=== PATIENT | male | born 1960 | race Caucasian/White ===

== ENCOUNTER 2021-05-19 10:18 | Inpatient (IN) | payer BC ==
[2021-05-19 12:16] LABS: BASO % 0.6 % (0-2.0); EOS % 0.1 % (0-4.5); HEMATOCRIT 42.3 % (35.4-49); HEMOGLOBIN 14.8 GM/dL (11.7-16.9); LYMPH % 24.1 % (8-40); MCHC 35.1 g/dl (32.0-35.9); MEAN CELL VOLUME 96.7 fl (80-96); MEAN PLT VOLUME 8.6 fl (7.5-11.1); MONO % 7.2 % (3.8-10.2); PLATELET COUNT 178 10^3/uL (134-434); RBC 4.37 M/mm3 (4.00-5.60); RDW 13.5 % (11.9-15.9); WHITE BLOOD COUNT 5.4 K/mm3 (4.0-10.0)
[2021-05-19 12:29] LABS: CHLORIDE 96 mmol/L (98-107); SODIUM 132 mmol/L (136-145)
[2021-05-19 12:31] LABS: ANION GAP 15 MMOL/L (8-16); CALCIUM 9.1 mg/dL (8.5-10.1); CO2 20 mmol/L (21-32); GLUCOSE,RANDOM 232 mg/dL (74-106)
[2021-05-19 12:34] LABS: CREATININE 1.8 mg/dL (0.55-1.3); SGOT/AST 67 U/L (15-37); SGPT/ALT 62 U/L (13-61)
[2021-05-19 12:36] LABS: BILIRUBIN,TOTAL 1.1 mg/dL (0.2-1); TOT PROT 7.4 g/dl (6.4-8.2)
[2021-05-19 12:37] LABS: ALK PHOS 100 U/L (45-117)
[2021-05-19] MEDS ORDERED: ASPIRIN 81 MG CHEWABLE TABLETS PO ONE (13:28)
[2021-05-19] MEDS ORDERED: ASPIRIN 81 MG CHEWABLE TABLETS ONE (14:17)
[2021-05-19] MEDS ORDERED: sitaGLIPtin PHOSPHATE 50 MG TABLET ONE (14:35)
[2021-05-19] MEDS: SODIUM CHLORIDE 0.45% 1,000 ML IV SCH (14:47)
[2021-05-19 15:23] LABS: N-TERMINAL BNP 2309.4 pg/ml (5-125)
[2021-05-19] MEDS ORDERED: ENOXAPARIN NA (PORCINE) 100 MG/1 ML DISP.SYRIN SQ SCH ×2 (22:00→22:15)
[2021-05-19] MEDS: METOPROLOL TARTRATE 25 MG TABLET (FP) PO SCH (22:30)
[2021-05-19] MEDS: ACETAMINOPHEN 325 MG TABLET (FP) PO PRN (23:03)
[2021-05-19] MEDS: ENOXAPARIN NA (PORCINE) 100 MG/1 ML DISP.SYRIN SQ SCH (23:25)
[2021-05-20] MEDS: SODIUM CHLORIDE 0.45% 1,000 ML IV SCH (05:28)
[2021-05-20] MEDS: ACETAMINOPHEN 325 MG TABLET (FP) PO PRN ×3 (06:28→23:27)
[2021-05-20 07:28] LABS: CALCIUM 8.4 mg/dL (8.5-10.1)
[2021-05-20 07:29] LABS: BLOOD UREA NITROGEN 23.3 mg/dL (7-18)
[2021-05-20 07:32] LABS: CREATININE 1.2 mg/dL (0.55-1.3)
[2021-05-20] MEDS: ASPIRIN COATED 81 MG TABLET.EC PO SCH (09:28)
[2021-05-20] MEDS: METOPROLOL TARTRATE 25 MG TABLET (FP) PO SCH ×2 (09:28→22:24)
[2021-05-20] MEDS: ENOXAPARIN NA (PORCINE) 100 MG/1 ML DISP.SYRIN SQ SCH (09:28)
[2021-05-20] MEDS: SODIUM CHLORIDE 1,000 ML IV SCH ×2 (09:29→23:25)
[2021-05-20] MEDS ORDERED: amLODIPine BESYLATE 5 MG TABLET (FP) PO SCH (10:00)
[2021-05-20] MEDS: LIDOCAINE 5% TOPICAL PATCH TP SCH (11:35)
[2021-05-20 13:20] VITALS: BMI 26.7
[2021-05-20 20:37] LABS: URINE APPEARANCE CLEAR; URINE BILIRUBIN NEGATIVE (NEGATIVE); URINE COLOR YELLOW; URINE GLUCOSE (UA) NEGATIVE (NEGATIVE); URINE KETONE NEGATIVE (NEGATIVE); URINE LEUK ESTERASE NEGATIVE (NEGATIVE); URINE NITRITE NEGATIVE (NEGATIVE); URINE PROTEIN NEGATIVE (NEGATIVE); URINE UROBILINOGEN 0.2 mg/dL (0.2-1.0)
[2021-05-20] MEDS: ATORVASTATIN CA 40 MG TABLET (FP) PO SCH (22:24)
[2021-05-20] MEDS: LIDOCAINE PATCH REMOVAL MC SCH (22:24)
[2021-05-21] MEDS: ACETAMINOPHEN 325 MG TABLET (FP) PO PRN ×2 (06:38→18:39)
[2021-05-21 07:24] LABS: CALCIUM 8.3 mg/dL (8.5-10.1)
[2021-05-21 07:25] LABS: BLOOD UREA NITROGEN 12.4 mg/dL (7-18)
[2021-05-21 07:28] LABS: CREATININE 0.7 mg/dL (0.55-1.3)
[2021-05-21 07:29] LABS: BILIRUBIN,TOTAL 0.7 mg/dL (0.2-1); TOT PROT 5.8 g/dl (6.4-8.2)
[2021-05-21 07:36] LABS: ALBUMIN 3.1 g/dl (3.4-5.0)
[2021-05-21] MEDS ORDERED: oxyCODONE HCL 5 MG TABLET PO PRN (08:30)
[2021-05-21] MEDS: LOSARTAN POTASSIUM 25 MG TABLET PO SCH (10:28)
[2021-05-21] MEDS: METOPROLOL TARTRATE 25 MG TABLET (FP) PO SCH ×2 (10:28→22:26)
[2021-05-21] MEDS: LIDOCAINE 5% TOPICAL PATCH TP SCH (10:28)
[2021-05-21] MEDS: ASPIRIN COATED 81 MG TABLET.EC PO SCH (10:28)
[2021-05-21] MEDS: ENOXAPARIN NA (PORCINE) 40 MG/0.4 ML DISP.SYRIN SQ SCH (10:29)
[2021-05-21] MEDS: amLODIPine BESYLATE 10 MG TABLET (FP) PO SCH (10:29)
[2021-05-21] MEDS ORDERED: diphenhydrAMINE HCL 25 MG CAPSULE (FP) PO PRN (14:33)
[2021-05-21] MEDS: ATORVASTATIN CA 40 MG TABLET (FP) PO SCH (22:26)
[2021-05-21] MEDS: LIDOCAINE PATCH REMOVAL MC SCH (22:26)
[2021-05-22] MEDS: ACETAMINOPHEN 325 MG TABLET (FP) PO PRN ×2 (00:04→09:50)
[2021-05-22] MEDS: ENOXAPARIN NA (PORCINE) 40 MG/0.4 ML DISP.SYRIN SQ SCH (09:49)
[2021-05-22] MEDS: ASPIRIN COATED 81 MG TABLET.EC PO SCH (09:50)
[2021-05-22] MEDS: FAMOTIDINE 20 MG TABLET PO SCH (09:50)
[2021-05-22] MEDS: METOPROLOL TARTRATE 25 MG TABLET (FP) PO SCH ×2 (09:50→21:52)
[2021-05-22] MEDS: LOSARTAN POTASSIUM 25 MG TABLET PO SCH (09:50)
[2021-05-22] MEDS: NAPROXEN 500 MG TABLET PO SCH ×2 (09:50→21:52)
[2021-05-22] MEDS: amLODIPine BESYLATE 10 MG TABLET (FP) PO SCH (09:50)
[2021-05-22] MEDS: LIDOCAINE 5% TOPICAL PATCH TP SCH (09:52)
[2021-05-22 11:19] LABS: BASO % 0.4 % (0-2.0); EOS % 0.5 % (0-4.5); HEMATOCRIT 34.1 % (35.4-49); HEMOGLOBIN 11.8 GM/dL (11.7-16.9); LYMPH % 20.5 % (8-40); MCH 33.8 pg (25.7-33.7); MCHC 34.6 g/dl (32.0-35.9); MEAN CELL VOLUME 97.5 fl (80-96); MEAN PLT VOLUME 8.5 fl (7.5-11.1); MONO % 13.2 % (3.8-10.2); NEUT % 65.4 % (42.8-82.8); PLATELET COUNT 150 10^3/uL (134-434); RBC 3.49 M/mm3 (4.00-5.60); RDW 13.6 % (11.9-15.9); WHITE BLOOD COUNT 3.3 K/mm3 (4.0-10.0)
[2021-05-22] MEDS ORDERED: LOSARTAN POTASSIUM 50 MG TABLET PO SCH (11:28)
[2021-05-22 11:41] LABS: CALCIUM 8.6 mg/dL (8.5-10.1)
[2021-05-22 11:42] LABS: ALBUMIN 3.3 g/dl (3.4-5.0); BLOOD UREA NITROGEN 11.6 mg/dL (7-18)
[2021-05-22 11:44] LABS: URIC ACID 4.8 mg/dL (2.6-7.2)
[2021-05-22 11:45] LABS: CREATININE 0.8 mg/dL (0.55-1.3)
[2021-05-22 11:47] LABS: BILIRUBIN,TOTAL 0.7 mg/dL (0.2-1); TOT PROT 6.4 g/dl (6.4-8.2)
[2021-05-22 12:09] LABS: ERYTHROCYTE SEDIMENTATION RATE 86 mm/hr (0-20)
[2021-05-22] MEDS ORDERED: LOSARTAN POTASSIUM 25 MG TABLET PO ONE (12:30)
[2021-05-22] MEDS: COLCHICINE 0.6 MG TAB PO SCH (18:00)
[2021-05-22] MEDS: LIDOCAINE PATCH REMOVAL MC SCH (21:52)
[2021-05-22] MEDS: ATORVASTATIN CA 40 MG TABLET (FP) PO SCH (21:52)
[2021-05-23] MEDS: predniSONE 20 MG TABLET (UD) PO SCH ×2 (08:00→10:25)
[2021-05-23 09:32] VITALS: BP 147/64; PULSE 85; TEMP 97.8
[2021-05-23] MEDS: METOPROLOL TARTRATE 25 MG TABLET (FP) PO SCH (10:21)
[2021-05-23] MEDS: COLCHICINE 0.6 MG TAB PO SCH (10:21)
[2021-05-23] MEDS: amLODIPine BESYLATE 10 MG TABLET (FP) PO SCH (10:21)
[2021-05-23] MEDS: NAPROXEN 500 MG TABLET PO SCH (10:21)
[2021-05-23] MEDS: ENOXAPARIN NA (PORCINE) 40 MG/0.4 ML DISP.SYRIN SQ SCH (10:22)
[2021-05-23] MEDS: FAMOTIDINE 20 MG TABLET PO SCH (10:22)
[2021-05-23] MEDS: LIDOCAINE 5% TOPICAL PATCH TP SCH (10:23)
[2021-05-23] MEDS: ASPIRIN COATED 81 MG TABLET.EC PO SCH (10:24)
== END 2021-05-23 12:09 | disposition home or self-care (01) | DRG 641 ==
LOC: JER 10:18 → JERBED 14:16 → J2W 16:48
PROVIDERS: ADMIT Internal Medicine; ATTEND Internal Medicine
DX: E87.1 Hypo-osmolality and hyponatremia (principal); I24.8 Other forms of acute ischemic heart disease; N17.9 Acute kidney failure, unspecified; E11.9 Type 2 diabetes mellitus without complications; R00.0 Tachycardia, unspecified; R77.8 Other specified abnormalities of plasma proteins; R94.31 Abnormal electrocardiogram [ECG] [EKG]; M10.9 Gout, unspecified; M25.569 Pain in unspecified knee; E78.5 Hyperlipidemia, unspecified; I71.2 Thoracic aortic aneurysm, without rupture; M25.469 Effusion, unspecified knee; R07.89 Other chest pain; I11.9 Hypertensive heart disease without heart failure; I12.9 Hypertensive chronic kidney disease with stage 1 through stage 4 chronic kidney disease, or unspecified chronic kidney disease; E11.22 Type 2 diabetes mellitus with diabetic chronic kidney disease; N18.9 Chronic kidney disease, unspecified
CPT/HCPCS: 36415; 71045-TC-FY; 71275-TC; 73562-TC-LT-FY; 80048; 80053; 81003; 82962; 83880; 84484; 84550; 85025; 85651; 86140; 87804; 93005; 93010; 93306-TC; 93971-TC; 97116-GP; 97161-GP; 99285-25; C9803; Q9967; U0003; U0005

== ENCOUNTER 2021-08-15 09:16 | Inpatient (IN) | payer BC ==
[2021-08-15 09:34] VITALS: BMI 25.0
[2021-08-15] MEDS ORDERED: ACETAMINOPHEN 1000 MG/100 ML BAG IVPB ONE (10:28)
[2021-08-15] MEDS ORDERED: SODIUM CHLORIDE 0.9% 500 ML INFUS.BAG IV ONE (10:28)
[2021-08-15] MEDS ORDERED: FAMOTIDINE 20 MG/50 ML IVPB 20 MG/50 ML MG IVPB ONE (10:29)
[2021-08-15] MEDS ORDERED: FAMOTIDINE 10 MG/ML VIAL IVPB ONE (10:37)
[2021-08-15] MEDS ORDERED: diazePAM CARPU-JECT 10 MG/2 ML DISP.SYRIN IVPUSH ONE (10:39)
[2021-08-15] MEDS ORDERED: diazePAM CARPU-JECT 10 MG/2 ML DISP.SYRIN ONE (10:43)
[2021-08-15 11:10] LABS: INR 1.21 (0.83-1.09); PROTHROMBIN TIME (PATIENT) 13.9 SEC (9.7-13.0)
[2021-08-15 11:20] LABS: ALBUMIN 3.5 g/dl (3.4-5.0); BLOOD UREA NITROGEN 20.6 mg/dL (7-18); CALCIUM 9.1 mg/dL (8.5-10.1)
[2021-08-15 11:23] LABS: CREATININE 1.2 mg/dL (0.55-1.3)
[2021-08-15 11:23] LABS: BASO % 0.3 % (0-2.0); EOS % 0.2 % (0-4.5); HEMATOCRIT 34.8 % (35.4-49); HEMOGLOBIN 12.1 GM/dL (11.7-16.9); LYMPH % 10.4 % (8-40); MCHC 34.7 g/dl (32.0-35.9); MEAN CELL VOLUME 100.8 fl (80-96); MEAN PLT VOLUME 8.4 fl (7.5-11.1); MONO % 10.1 % (3.8-10.2); PLATELET COUNT 143 10^3/uL (134-434); RBC 3.45 M/mm3 (4.00-5.60); RDW 17.2 % (11.9-15.9); WHITE BLOOD COUNT 4.1 K/mm3 (4.0-10.0)
[2021-08-15 11:25] LABS: BILIRUBIN,TOTAL 4.5 mg/dL (0.2-1); TOT PROT 6.8 g/dl (6.4-8.2)
[2021-08-15] MEDS ORDERED: PIPERACILLIN/TAZOB 3.375 GM 3.375 GM in DEXTROSE 5%-WATER - 50 ML IVPB ONE (12:01)
[2021-08-15] MEDS ORDERED: PIPERACILLIN/TAZOB 3.375 GM 3.375 GM/50 ML BAG IVPB ONE (12:12)
[2021-08-15] MEDS ORDERED: DEXTROSE 5%-LACTATED RINGERS 1,000 ML IV SCH (13:15)
[2021-08-15] MEDS: chlordiazePOXIDE HCL 25 MG CAPSULE PO SCH ×2 (14:13→22:51)
[2021-08-15] MEDS ORDERED: PIPERACILLIN/TAZOBACTAM 3.375 GM VIAL IVPB ONE (18:37)
[2021-08-15] MEDS ORDERED: DEXTROSE 5%-WATER - 50 ML IVPB ONE (18:37)
[2021-08-15] MEDS: PIPERACILLIN/TAZOB 3.375 GM 3.375 GM in DEXTROSE 5%-WATER - 50 ML IVPB SCH (18:45)
[2021-08-15] MEDS: SODIUM CHLORIDE 1,000 ML IV SCH (18:45)
[2021-08-15] MEDS: INSULIN SLIDING SCALE (NOVOLOG) 1 VIAL SQ SCH (22:50)
[2021-08-15] MEDS: METOPROLOL TARTRATE 25 MG TABLET (FP) PO SCH (22:50)
[2021-08-15] MEDS: PANTOPRAZOLE SODIUM 40 MG VIAL IVPUSH SCH (22:51)
[2021-08-16] MEDS ORDERED: PIPERACILLIN/TAZOBACTAM 3.375 GM VIAL IVPB ONE ×2 (03:02→09:08)
[2021-08-16] MEDS ORDERED: DEXTROSE 5%-WATER - 50 ML IVPB ONE ×2 (03:03→09:08)
[2021-08-16] MEDS: PIPERACILLIN/TAZOB 3.375 GM 3.375 GM in DEXTROSE 5%-WATER - 50 ML IVPB SCH ×2 (03:19→09:30)
[2021-08-16] MEDS: SODIUM CHLORIDE 1,000 ML IV SCH (06:26)
[2021-08-16] MEDS: chlordiazePOXIDE HCL 25 MG CAPSULE PO SCH ×3 (06:26→22:33)
[2021-08-16] MEDS: INSULIN SLIDING SCALE (NOVOLOG) 1 VIAL SQ SCH ×4 (07:40→22:34)
[2021-08-16] MEDS: LOSARTAN POTASSIUM 25 MG TABLET PO SCH (09:29)
[2021-08-16] MEDS: amLODIPine BESYLATE 10 MG TABLET (FP) PO SCH (09:29)
[2021-08-16] MEDS: METOPROLOL TARTRATE 25 MG TABLET (FP) PO SCH ×2 (09:29→22:33)
[2021-08-16] MEDS: PANTOPRAZOLE SODIUM 40 MG VIAL IVPUSH SCH (09:30)
[2021-08-16 09:56] LABS: BASO % 0.4 % (0-2.0); EOS % 0.6 % (0-4.5); HEMATOCRIT 30.5 % (35.4-49); HEMOGLOBIN 10.6 GM/dL (11.7-16.9); LYMPH % 16.4 % (8-40); MCH 35.4 pg (25.7-33.7); MCHC 34.6 g/dl (32.0-35.9); MEAN CELL VOLUME 102.1 fl (80-96); MEAN PLT VOLUME 9.4 fl (7.5-11.1); MONO % 7.7 % (3.8-10.2); NEUT % 74.9 % (42.8-82.8); PLATELET COUNT 128 10^3/uL (134-434); RBC 2.99 M/mm3 (4.00-5.60); RDW 17.1 % (11.9-15.9); WHITE BLOOD COUNT 3.3 K/mm3 (4.0-10.0)
[2021-08-16 10:33] LABS: ALBUMIN 2.7 g/dl (3.4-5.0); ALK PHOS 218 U/L (45-117); ANION GAP 11 MMOL/L (8-16); BILIRUBIN,DIRECT 2.6 mg/dL (0.0-0.2); BILIRUBIN,TOTAL 3.1 mg/dL (0.2-1); BLOOD UREA NITROGEN 16.6 mg/dL (7-18); CALCIUM 8.4 mg/dL (8.5-10.1); CHLORIDE 100 mmol/L (98-107); CO2 26 mmol/L (21-32); CREATININE 0.9 mg/dL (0.55-1.3); GLUCOSE,RANDOM 101 mg/dL (74-106); SGOT/AST 210 U/L (15-37); SGPT/ALT 87 U/L (13-61); SODIUM 137 mmol/L (136-145); TOT PROT 5.6 g/dl (6.4-8.2)
[2021-08-16 10:34] LABS: IRON SERUM 74 ug/dL (50-175); TOTAL IRON BINDING CAPACITY 130 ug/dL (250-450)
[2021-08-16] MEDS ORDERED: POTASSIUM CHLORIDE TABS 10 MEQ TABLET.ER (FP) PO ONE ×2 (11:54)
[2021-08-16] MEDS: SODIUM CHLORIDE 0.9%/KCL 20 MEQ/1,000 ML INFUS.BAG IV SCH (13:39)
[2021-08-17] MEDS: INSULIN SLIDING SCALE (NOVOLOG) 1 VIAL SQ SCH ×4 (06:26→22:18)
[2021-08-17] MEDS: chlordiazePOXIDE HCL 25 MG CAPSULE PO SCH ×3 (06:26→22:21)
[2021-08-17 09:24] LABS: BASO % 0.6 % (0-2.0); EOS % 0.8 % (0-4.5); HEMATOCRIT 28.6 % (35.4-49); HEMOGLOBIN 9.9 GM/dL (11.7-16.9); LYMPH % 20.9 % (8-40); MCHC 34.7 g/dl (32.0-35.9); MEAN PLT VOLUME 8.2 fl (7.5-11.1); MONO % 9.8 % (3.8-10.2); NEUT % 67.9 % (42.8-82.8); PLATELET COUNT 140 10^3/uL (134-434); RBC 2.84 M/mm3 (4.00-5.60); RDW 17.2 % (11.9-15.9); WHITE BLOOD COUNT 3.1 K/mm3 (4.0-10.0)
[2021-08-17] MEDS: METOPROLOL TARTRATE 25 MG TABLET (FP) PO SCH ×2 (09:38→22:20)
[2021-08-17] MEDS: PANTOPRAZOLE 20 MG TABLET PO SCH (09:38)
[2021-08-17] MEDS: amLODIPine BESYLATE 10 MG TABLET (FP) PO SCH (09:38)
[2021-08-17] MEDS: LOSARTAN POTASSIUM 25 MG TABLET PO SCH (09:38)
[2021-08-17] MEDS: ASPIRIN 81 MG CHEWABLE TABLETS PO SCH (09:38)
[2021-08-17 09:53] LABS: BLOOD UREA NITROGEN 12.3 mg/dL (7-18); CALCIUM 8.7 mg/dL (8.5-10.1)
[2021-08-17 09:54] LABS: ALBUMIN 2.7 g/dl (3.4-5.0)
[2021-08-17 09:56] LABS: BILIRUBIN,DIRECT 2.5 mg/dL (0.0-0.2)
[2021-08-17 09:57] LABS: CREATININE 0.9 mg/dL (0.55-1.3)
[2021-08-17 09:58] LABS: TOT PROT 5.8 g/dl (6.4-8.2)
[2021-08-17] MEDS: PIPERACILLIN/TAZOB 3.375 GM 3.375 GM in DEXTROSE 5%-WATER - 50 ML IVPB SCH ×2 (14:47→14:48)
[2021-08-17] MEDS: THIAMINE HCL 100 MG TABLET (FP) PO SCH (14:47)
[2021-08-17] MEDS: SODIUM CHLORIDE 0.9%/KCL 20 MEQ/1,000 ML INFUS.BAG IV SCH (15:39)
[2021-08-18] MEDS: SODIUM CHLORIDE 0.9%/KCL 20 MEQ/1,000 ML INFUS.BAG IV SCH ×3 (02:14→20:12)
[2021-08-18] MEDS: chlordiazePOXIDE HCL 25 MG CAPSULE PO SCH (06:33)
[2021-08-18] MEDS: INSULIN SLIDING SCALE (NOVOLOG) 1 VIAL SQ SCH ×4 (06:34→21:44)
[2021-08-18] MEDS: PANTOPRAZOLE 20 MG TABLET PO SCH (10:42)
[2021-08-18] MEDS: LOSARTAN POTASSIUM 25 MG TABLET PO SCH (10:42)
[2021-08-18] MEDS: amLODIPine BESYLATE 10 MG TABLET (FP) PO SCH (10:42)
[2021-08-18] MEDS: ASPIRIN 81 MG CHEWABLE TABLETS PO SCH (10:42)
[2021-08-18] MEDS: METOPROLOL TARTRATE 25 MG TABLET (FP) PO SCH ×2 (10:42→21:32)
[2021-08-18] MEDS: THIAMINE HCL 100 MG TABLET (FP) PO SCH (10:42)
[2021-08-18 11:28] LABS: BASO % 0.6 % (0-2.0); EOS % 0.8 % (0-4.5); HEMATOCRIT 30.9 % (35.4-49); HEMOGLOBIN 10.6 GM/dL (11.7-16.9); LYMPH % 27.5 % (8-40); MCH 34.7 pg (25.7-33.7); MCHC 34.2 g/dl (32.0-35.9); MEAN CELL VOLUME 101.4 fl (80-96); MEAN PLT VOLUME 8.5 fl (7.5-11.1); MONO % 9.9 % (3.8-10.2); NEUT % 61.2 % (42.8-82.8); PLATELET COUNT 175 10^3/uL (134-434); RBC 3.05 M/mm3 (4.00-5.60); RDW 16.9 % (11.9-15.9); WHITE BLOOD COUNT 3.2 K/mm3 (4.0-10.0)
[2021-08-18 11:44] LABS: BLOOD UREA NITROGEN 7.7 mg/dL (7-18); CALCIUM 8.9 mg/dL (8.5-10.1)
[2021-08-18 11:47] LABS: CREATININE 0.7 mg/dL (0.55-1.3)
[2021-08-18] MEDS ORDERED: MAG HYDROX/AL HYDROX/SIMETH 30 ML UNIT-DOSE CUP PO PRN (12:38)
[2021-08-18] MEDS ORDERED: chlordiazePOXIDE 5 MG CAPSULE PO SCH (14:00)
[2021-08-18 15:01] LABS: ALBUMIN 2.8 g/dl (3.4-5.0)
[2021-08-18 15:04] LABS: BILIRUBIN,DIRECT 2.6 mg/dL (0.0-0.2)
[2021-08-18] MEDS: chlordiazePOXIDE 5 MG CAPSULE PO SCH ×2 (15:05→21:32)
[2021-08-18 15:06] LABS: BILIRUBIN,TOTAL 3.1 mg/dL (0.2-1); TOT PROT 5.7 g/dl (6.4-8.2)
[2021-08-18] MEDS: LIDOCAINE 5% TOPICAL PATCH TP SCH (18:15)
[2021-08-18] MEDS: POLYETHYLENE GLYCOL (HEALTHYLAX) 3350 17 GM PACKET PO SCH (21:32)
[2021-08-18] MEDS: LIDOCAINE PATCH REMOVAL MC SCH (21:33)
[2021-08-19] MEDS: chlordiazePOXIDE 5 MG CAPSULE PO SCH (05:40)
[2021-08-19] MEDS: INSULIN SLIDING SCALE (NOVOLOG) 1 VIAL SQ SCH ×4 (06:00→21:35)
[2021-08-19 08:37] LABS: EOS % 0.3 % (0-4.5); HEMATOCRIT 28.9 % (35.4-49); LYMPH % 32.6 % (8-40); MCH 34.6 pg (25.7-33.7); MCHC 34.6 g/dl (32.0-35.9); MEAN CELL VOLUME 100.2 fl (80-96); MEAN PLT VOLUME 7.6 fl (7.5-11.1); NEUT % 53.1 % (42.8-82.8); PLATELET COUNT 197 10^3/uL (134-434); RBC 2.88 M/mm3 (4.00-5.60); RDW 17.5 % (11.9-15.9); WHITE BLOOD COUNT 3.1 K/mm3 (4.0-10.0)
[2021-08-19 09:03] LABS: CHLORIDE 105 mmol/L (98-107); SODIUM 139 mmol/L (136-145)
[2021-08-19 09:04] LABS: CALCIUM 8.7 mg/dL (8.5-10.1)
[2021-08-19 09:05] LABS: CO2 25 mmol/L (21-32); GLUCOSE,RANDOM 107 mg/dL (74-106)
[2021-08-19 09:08] LABS: CREATININE 0.5 mg/dL (0.55-1.3)
[2021-08-19 09:16] LABS: ANION GAP 9 MMOL/L (8-16)
[2021-08-19 09:34] LABS: ALBUMIN 2.4 g/dl (3.4-5.0)
[2021-08-19 09:39] LABS: BILIRUBIN,TOTAL 2.6 mg/dL (0.2-1); TOT PROT 5.5 g/dl (6.4-8.2)
[2021-08-19] MEDS: ASPIRIN 81 MG CHEWABLE TABLETS PO SCH (10:26)
[2021-08-19] MEDS: PANTOPRAZOLE 20 MG TABLET PO SCH (10:26)
[2021-08-19] MEDS: THIAMINE HCL 100 MG TABLET (FP) PO SCH (10:26)
[2021-08-19] MEDS: METOPROLOL TARTRATE 25 MG TABLET (FP) PO SCH ×2 (10:26→21:24)
[2021-08-19] MEDS: POTASSIUM CHLORIDE TABS 20 MEQ TABLET.ER (FP) PO SCH (10:27)
[2021-08-19] MEDS: LOSARTAN POTASSIUM 25 MG TABLET PO SCH (10:27)
[2021-08-19] MEDS: POLYETHYLENE GLYCOL (HEALTHYLAX) 3350 17 GM PACKET PO SCH ×2 (10:27→21:20)
[2021-08-19] MEDS: amLODIPine BESYLATE 10 MG TABLET (FP) PO SCH (10:27)
[2021-08-19] MEDS: LIDOCAINE 5% TOPICAL PATCH TP SCH (10:28)
[2021-08-19] MEDS: KCL 10 MEQ IVPB 10 MEQ/100 ML INFUS.BAG IVPB SCH ×3 (10:28→13:16)
[2021-08-19] MEDS: LIDOCAINE PATCH REMOVAL MC SCH (21:21)
[2021-08-20] MEDS: INSULIN SLIDING SCALE (NOVOLOG) 1 VIAL SQ SCH ×4 (06:18→22:30)
[2021-08-20 08:39] LABS: BASO % 1.1 % (0-2.0); EOS % 0.7 % (0-4.5); HEMOGLOBIN 10.4 GM/dL (11.7-16.9); LYMPH % 21.7 % (8-40); MCH 34.8 pg (25.7-33.7); MCHC 34.6 g/dl (32.0-35.9); MEAN CELL VOLUME 100.4 fl (80-96); MEAN PLT VOLUME 8.1 fl (7.5-11.1); MONO % 17.3 % (3.8-10.2); NEUT % 59.2 % (42.8-82.8); PLATELET COUNT 222 10^3/uL (134-434); RBC 2.98 M/mm3 (4.00-5.60); RDW 17.5 % (11.9-15.9); WHITE BLOOD COUNT 3.8 K/mm3 (4.0-10.0)
[2021-08-20 09:00] LABS: CALCIUM 8.6 mg/dL (8.5-10.1)
[2021-08-20 09:01] LABS: ALBUMIN 2.4 g/dl (3.4-5.0); BLOOD UREA NITROGEN 4.1 mg/dL (7-18)
[2021-08-20 09:03] LABS: CREATININE 0.6 mg/dL (0.55-1.3)
[2021-08-20 09:04] LABS: TOT PROT 5.8 g/dl (6.4-8.2)
[2021-08-20 09:05] LABS: BILIRUBIN,TOTAL 2.5 mg/dL (0.2-1)
[2021-08-20] MEDS: LIDOCAINE 5% TOPICAL PATCH TP SCH (10:18)
[2021-08-20] MEDS: POLYETHYLENE GLYCOL (HEALTHYLAX) 3350 17 GM PACKET PO SCH ×2 (10:19→22:24)
[2021-08-20] MEDS: COLCHICINE 0.6 MG TAB PO SCH (10:19)
[2021-08-20] MEDS: LOSARTAN POTASSIUM 25 MG TABLET PO SCH (10:19)
[2021-08-20] MEDS: METOPROLOL TARTRATE 25 MG TABLET (FP) PO SCH ×2 (10:19→22:24)
[2021-08-20] MEDS: POTASSIUM CHLORIDE TABS 20 MEQ TABLET.ER (FP) PO SCH (10:19)
[2021-08-20] MEDS: THIAMINE HCL 100 MG TABLET (FP) PO SCH (10:19)
[2021-08-20] MEDS: ASPIRIN 81 MG CHEWABLE TABLETS PO SCH (10:19)
[2021-08-20] MEDS: PANTOPRAZOLE 20 MG TABLET PO SCH (10:19)
[2021-08-20] MEDS: amLODIPine BESYLATE 10 MG TABLET (FP) PO SCH (10:19)
[2021-08-20 13:14] LABS: BILIRUBIN,DIRECT 1.9 mg/dL (0.0-0.2)
[2021-08-20 13:59] LABS: ALBUMIN 2.6 g/dl (3.4-5.0)
[2021-08-20 14:03] LABS: BILIRUBIN,TOTAL 2.4 mg/dL (0.2-1); TOT PROT 5.8 g/dl (6.4-8.2)
[2021-08-20] MEDS: LIDOCAINE PATCH REMOVAL MC SCH (22:25)
[2021-08-21] MEDS: INSULIN SLIDING SCALE (NOVOLOG) 1 VIAL SQ SCH ×4 (06:18→23:59)
[2021-08-21 08:13] LABS: HEMATOCRIT 29.4 % (35.4-49); HEMOGLOBIN 9.9 GM/dL (11.7-16.9); MCH 34.4 pg (25.7-33.7); MCHC 33.8 g/dl (32.0-35.9); MEAN CELL VOLUME 101.9 fl (80-96); MEAN PLT VOLUME 8.7 fl (7.5-11.1); PLATELET COUNT 251 10^3/uL (134-434); RBC 2.89 M/mm3 (4.00-5.60); WHITE BLOOD COUNT 3.5 K/mm3 (4.0-10.0)
[2021-08-21 08:31] LABS: CALCIUM 8.3 mg/dL (8.5-10.1)
[2021-08-21 08:32] LABS: ALBUMIN 2.4 g/dl (3.4-5.0); BLOOD UREA NITROGEN 7.5 mg/dL (7-18)
[2021-08-21 08:35] LABS: CREATININE 0.7 mg/dL (0.55-1.3)
[2021-08-21 08:37] LABS: TOT PROT 5.6 g/dl (6.4-8.2)
[2021-08-21] MEDS: LIDOCAINE 5% TOPICAL PATCH TP SCH (09:57)
[2021-08-21] MEDS: PANTOPRAZOLE 20 MG TABLET PO SCH (09:57)
[2021-08-21] MEDS: LOSARTAN POTASSIUM 25 MG TABLET PO SCH (09:57)
[2021-08-21] MEDS: COLCHICINE 0.6 MG TAB PO SCH (09:57)
[2021-08-21] MEDS: amLODIPine BESYLATE 10 MG TABLET (FP) PO SCH (09:57)
[2021-08-21] MEDS: POLYETHYLENE GLYCOL (HEALTHYLAX) 3350 17 GM PACKET PO SCH ×2 (09:57→23:46)
[2021-08-21] MEDS: POTASSIUM CHLORIDE TABS 20 MEQ TABLET.ER (FP) PO SCH (09:57)
[2021-08-21] MEDS: METOPROLOL TARTRATE 25 MG TABLET (FP) PO SCH ×2 (09:57→23:46)
[2021-08-21] MEDS: ASPIRIN 81 MG CHEWABLE TABLETS PO SCH (09:57)
[2021-08-21] MEDS: THIAMINE HCL 100 MG TABLET (FP) PO SCH (09:57)
[2021-08-21] MEDS: predniSONE 20 MG TABLET (UD) PO SCH (10:34)
[2021-08-21] MEDS ORDERED: ACETAMINOPHEN 500 MG TABLET (FP) PO PRN (17:06)
[2021-08-21] MEDS: LIDOCAINE PATCH REMOVAL MC SCH (23:51)
[2021-08-22] MEDS: INSULIN SLIDING SCALE (NOVOLOG) 1 VIAL SQ SCH ×3 (07:30→17:00)
[2021-08-22] MEDS: POLYETHYLENE GLYCOL (HEALTHYLAX) 3350 17 GM PACKET PO SCH (10:11)
[2021-08-22] MEDS: METOPROLOL TARTRATE 25 MG TABLET (FP) PO SCH (10:11)
[2021-08-22] MEDS: LIDOCAINE 5% TOPICAL PATCH TP SCH (10:11)
[2021-08-22] MEDS: POTASSIUM CHLORIDE TABS 20 MEQ TABLET.ER (FP) PO SCH (10:11)
[2021-08-22] MEDS: predniSONE 20 MG TABLET (UD) PO SCH (10:11)
[2021-08-22] MEDS: ASPIRIN 81 MG CHEWABLE TABLETS PO SCH (10:12)
[2021-08-22] MEDS: amLODIPine BESYLATE 10 MG TABLET (FP) PO SCH (10:12)
[2021-08-22] MEDS: LOSARTAN POTASSIUM 25 MG TABLET PO SCH (10:12)
[2021-08-22] MEDS: PANTOPRAZOLE 20 MG TABLET PO SCH (10:12)
[2021-08-22] MEDS: THIAMINE HCL 100 MG TABLET (FP) PO SCH (10:12)
[2021-08-22] MEDS: COLCHICINE 0.6 MG TAB PO SCH (10:12)
[2021-08-22 15:23] VITALS: TEMP 98.2
[2021-08-22 15:35] VITALS: BP 112/69; PULSE 80
== END 2021-08-22 17:42 | DRG 440 ==
LOC: JER 09:16 → JERBED 15:28 → J6S 16:32
PROVIDERS: ADMIT Internal Medicine; ATTEND Internal Medicine
DX: K85.20 Alcohol induced acute pancreatitis without necrosis or infection (principal); I10 Essential (primary) hypertension; E11.9 Type 2 diabetes mellitus without complications; K82.8 Other specified diseases of gallbladder; M10.9 Gout, unspecified; R79.89 Other specified abnormal findings of blood chemistry; F10.20 Alcohol dependence, uncomplicated; G31.2 Degeneration of nervous system due to alcohol; E78.5 Hyperlipidemia, unspecified; I25.10 Atherosclerotic heart disease of native coronary artery without angina pectoris; R00.0 Tachycardia, unspecified; W19.XXXA Unspecified fall, initial encounter; Y93.89 Activity, other specified; Y92.230 Patient room in hospital as the place of occurrence of the external cause; Y99.8 Other external cause status; K70.10 Alcoholic hepatitis without ascites; E87.6 Hypokalemia; Z79.84 Long term (current) use of oral hypoglycemic drugs
CPT/HCPCS: 36415; 70450-TC; 72170-TC-FY; 74182-TC; 76705-TC; 80048; 80053; 80076; 82105; 82140; 82728; 82962; 83516; 83540; 83550; 83605; 83615; 83690; 85025; 85027; 85610; 86038; 86140; 86705; 86803; 86850; 86900; 86901; 87340; 87517; 93005; 93010; 97116-GP; 97162-GP; 99285-25; A9579; C1887; C9803-CS; U0003; U0005